=== PATIENT | female | born 1940 | race Two or more races ===

== ENCOUNTER 2018-01-11 16:24 | Inpatient (IN) | payer MEDICARE, MEDICAID ==
--- NOTE | 2018-01-11 17:01 | ED Physician Chart ---
ED Chief Complaint/HPI - Patient Information Date Seen:: 01/11/18 Time Seen:: 16:40 Chief Complaint:: Dizziness History of Present Illness:: onset x 3 days of weakness, vertigo, and dizziness; no report of trauma, H/As, LOC, ALOC, AMS, S/T, neck pain, cough, C/P, SOB, Abd. Pain, A/N/V/D/C, fever, chills, or urinary s/s Allergies:: Allergies Allergy/AdvReac Type Severity Reaction Status Date / Time No Known Allergies Allergy Verified 01/11/18 16:39 Vitals:: Vital Signs - 8 hr 01/11/18 16:40 Temp 97.7 F HR 79 RR 16 BP 118/56 Historian:: Patient, EMS Review:: Nurse's Note Reviewed, Old Chart Reviewed, EMS run form Reviewed ED Review of Systems - Review of Systems General/Constitutional: No fever, No chills, No weight loss, Weakness, No diaphoresis, No edema, No loss of appetite Skin: No skin lesions, No rash, No bruising Head: No headache, No light-headedness Eyes: No loss of vision, No pain, No diplopia ENT: No earache, No nasal drainage, No sore throat, No tinnitus Neck: No neck pain, No swelling, No thyromegaly, No stiffness, No mass noted Cardio Vascular: No chest pain, No palpitations, No PND, No orthopnea, No edema Pulmonary: No SOB, No cough, No sputum, No wheezing GI: No nausea, No vomiting, No diarrhea, No pain, No melena, No hematochezia, No constipation, No hematemesis G/U: No dysuria, No frequency, No hematuria Hi Lo Driver: No vaginal discharge, No abnormal vaginal bleed, No contraction Musculoskeletal: No bone or joint pain, No back pain, No muscle pain Endocrine: No polyuria, No polydipsia Psychiatric: No prior psych history, No depression, No anxiety, No suicidal ideation, No homicidal ideation, No auditory hallucination, No visual hallucination Hematopoietic: No bruising, No lymphadenopathy Allergic/Immuno: No urticaria, No angioedema Neurological: No syncope, No focal symptoms, Weakness, No paresthesia, No headache, No seizure, Dizziness, Confusion, Vertigo ED Past Medical History - Past Medical History Obtainable: Yes Past Medical History: HTN, CVA/TIA, Dyslipidemia, PUD/GERD, Dementia Family History: HTN Social History: Non Smoker, No Alcohol, No Drug Use, , Care Facility Surgical History: None Psychiatricy History: Dementia Medication: Reviewed Family Medical History - Family Member Mother History Unknown: Yes ED Physical Exam - Physical Examination General/Constitutional: Awake, Well-developed, well-nourished, Alert, No distress, GCS 15, Non-toxic appearing, Ambulatory Head: Atraumatic Eyes: Lids, conjuctiva normal, PERRL, EOMI Skin: Nl inspection, No rash, No skin lesions, No ecchymosis, Well hydrated, No lymphadenopathy ENMT: External ears, nose nl, TM canals nl, Nasal exam nl, Lips, teeth, gums nl , Oropharynx nl, Tonsils nl Neck: Nontender, Full ROM w/o pain, No JVD, No nuchal rigidity, No bruit, No mass, No stridor Respiratory: Nl effort/Exclusion, Clear to Auscultation, No Wheeze/Rhonchi/Rales Cardio Vascular: RRR, No murmur, gallop, rubs, NL S1 S2, Carotid/Femoral/Distal pulses equal bilaterally GI: No tenderness/rebounding/guarding, No organomegaly, No hernia, Normal BS's, Nondistended, No mass/bruits, No McBurney tenderness : No CVA tenderness Extremities: No tenderness or effusion, Full ROM, normal strength in all extremities, No edema, Normal digits & nails Neuro/Psych: Alert/oriented, DTR's symmetric, Normal sensory exam, Normal motor strength, Judgement/insight normal, Mood normal, Normal gait, No focal deficits Misc: Normal back, No paraspinal tenderness ED Labs/Radiology/EKG Results - Lab Results Comments:: Reviewed - Radiology Results Comments:: NAD - EKG Interpretations EKG Time:: 17:06 Rate & Rhythm: 84; NSR Comments:: non-specific st-t changes ED Septic Shock - . Is Septic Shock (SBP<90, OR Lactate>4 mmol\L) present?: No - <6hrs of presentation: Vital Signs: Vital Signs - 8 hr 01/11/18 16:40 Temp 97.7 F HR 79 RR 16 BP 118/56 ED Reassessment (Disposition) - Reassessment Reassessment Condition:: Improved - Diagnosis Diagnosis:: Weakness; Dizziness; Vertigo; Hyponatremia; Dehydration; Hypercalcemia; Leukocytosis - Aftercare/Follow up Instructions Aftercare/Follow-Up Instructions:: Counseled pt regarding lab results/diagnosis & need follow up, Counseled pt & family regarding lab results/diagnosis & need follow up - Patient Disposition Discharge/Transfer:: Acute Care w/in this hosp Accepting Physician:: Dr. Lee Time Called:: 1800 Time Responded:: 18:00 Admitted to:: Telemetry Spoke to:: Dr. Lee Admitting Medical Physician:: Dr. Lee Condition at Disposition:: Stable, Improved
[2018-01-11 17:15] LABS: % BASOPHILS 0.5 % (0.0-2.0); % EOSINOPHILS 3.5 % (0.0-5.0); % MONOCYTES 7.2 % (2.0-10.0); % NEUTROPHILS 69.8 % (40.0-80.0); BASOPHILE ABSOLUTE 0.1 Th/cumm (0-0.2); EOSINOPHILE ABSOLUTE 0.4 Th/cmm (0.1-0.4); HEMATOCRIT 38.1 % (41.0-60); HEMOGLOBIN 12.8 gm/dL (12-16); LYMPHOCYTE ABSOLUTE 2.1 Th/cmm (1.5-3.0); MEAN CELL VOLUME 93.6 fl (81-100); MEAN CORPUSCULAR HEMOGLOBIN 31.4 pg (27.0-31.0); MEAN CORPUSCULAR HGB CONC 33.6 pg (28.0-36.0); MEAN PLATELET VOLUME 7.7 fl; MONOCYTE ABSOLUTE 0.8 Th/cmm (0.3-1.0); NEUTROPHILE ABSOLUTE 7.7 Th/cmm (1.8-8.0); PLATELET COUNT 339 Th/cmm (150-400); RED BLOOD COUNT 4.07 Mil/cmm (3.80-5.20); RED CELL DISTRIBUTION WIDTH 12.4 % (11.5-20.0); WHITE BLOOD COUNT 11.1 Th/cmm (4.8-10.8)
[2018-01-11 17:27] LABS: INR 0.95 (0.5-1.4); PROTHROMBIN TIME (TEST) 9.9 SECONDS (9.5-11.5)
[2018-01-11 17:30] LABS: ALB/GLOB RATIO 1.1 (1.0-1.8); ALBUMIN 3.8 gm/dL (3.7-5.3); ALKALINE PHOSPHATASE 64 U/L (34-104); ANION GAP 10.5 (7.0-16.0); BILIRUBIN,TOTAL 0.3 mg/dL (0.3-1.0); BUN - UREA NITROGEN 26 mg/dL (7-25); CALCIUM SERUM 10.4 mg/dL (8.6-10.3); CARBON DIOXIDE 25.5 mEq/L (21.0-31.0); CHLORIDE 102 mEq/L (98-107); CHOLESTEROL 139 mg/dL (<200); CREATININE - SERUM 0.6 mg/dL (0.6-1.2); CREATININE KINASE 11 U/L (30-223); GLUCOSE 117 mg/dL (70-105); HDL -HIGH DENSITY LIPOPROTEIN 35 mg/dL (23-92); SGOT 11 U/L (13-39); SGPT/ALT 12 U/L (7-52); SODIUM SERUM 134 mEq/L (136-145); TOTAL PROTEIN,SERUM 7.4 gm/dL (6.0-8.3); TRIGLYCERIDES 184 mg/dL (<150)
[2018-01-11 19:24] VITALS: BP 118/47
[2018-01-11] MEDS: INSULIN ASPART SLIDING SCALE 100 UNITS/ML UNIT SUBQ SCH (21:15)
[2018-01-12 06:18] LABS: % EOSINOPHILS 4.2 % (0.0-5.0); % MONOCYTES 7.8 % (2.0-10.0); BASOPHILE ABSOLUTE 0.1 Th/cumm (0-0.2); EOSINOPHILE ABSOLUTE 0.3 Th/cmm (0.1-0.4); HEMATOCRIT 35.7 % (41.0-60); HEMOGLOBIN 12.1 gm/dL (12-16); LYMPHOCYTE ABSOLUTE 1.5 Th/cmm (1.5-3.0); MEAN CELL VOLUME 93.5 fl (81-100); MEAN CORPUSCULAR HEMOGLOBIN 31.6 pg (27.0-31.0); MEAN CORPUSCULAR HGB CONC 33.8 pg (28.0-36.0); MEAN PLATELET VOLUME 8.1 fl; MONOCYTE ABSOLUTE 0.6 Th/cmm (0.3-1.0); NEUTROPHILE ABSOLUTE 5.7 Th/cmm (1.8-8.0); PLATELET COUNT 308 Th/cmm (150-400); RED BLOOD COUNT 3.82 Mil/cmm (3.80-5.20); RED CELL DISTRIBUTION WIDTH 12.3 % (11.5-20.0)
[2018-01-12 06:22] LABS: WHITE BLOOD COUNT 8.2 Th/cmm (4.8-10.8)
[2018-01-12 06:35] LABS: URINE SOURCE CLEAN C
[2018-01-12 06:35] LABS: ALBUMIN 3.3 gm/dL (3.7-5.3); ALKALINE PHOSPHATASE 53 U/L (34-104); ANION GAP 9.3 (7.0-16.0); BILIRUBIN,TOTAL 0.5 mg/dL (0.3-1.0); BUN - UREA NITROGEN 22 mg/dL (7-25); CALCIUM SERUM 9.8 mg/dL (8.6-10.3); CARBON DIOXIDE 26.7 mEq/L (21.0-31.0); CHLORIDE 104 mEq/L (98-107); CHOLESTEROL 124 mg/dL (<200); CREATININE - SERUM 0.6 mg/dL (0.6-1.2); GLUCOSE 138 mg/dL (70-105); HDL -HIGH DENSITY LIPOPROTEIN 31 mg/dL (23-92); SGOT 11 U/L (13-39); SGPT/ALT 11 U/L (7-52); SODIUM SERUM 136 mEq/L (136-145); TOTAL PROTEIN,SERUM 6.7 gm/dL (6.0-8.3); TRIGLYCERIDES 164 mg/dL (<150)
[2018-01-12] MEDS: INSULIN ASPART SLIDING SCALE 100 UNITS/ML UNIT SUBQ SCH ×4 (07:06→20:38)
[2018-01-12 07:07] LABS: URINE BILIRUBIN NEGATIVE (NEGATIVE); URINE BLOOD MODERATE (NEGATIVE); URINE CLARITY TURBID (CLEAR); URINE COLOR YELLOW; URINE GLUCOSE (UA) NEGATIVE (NEGATIVE); URINE KETONE NEGATIVE (NEGATIVE); URINE MICROSCOPIC INDICATED? YES
[2018-01-12 07:08] LABS: URINE LEUKOCYTE ESTERASE LARGE (NEGATIVE); URINE NITRATE NEGATIVE (NEGATIVE); URINE PROTEIN >300 mg/dL (NEGATIVE); URINE UROBILINOGEN 0.2 E.U./dL (0.2 - 1.0)
[2018-01-12 07:12] LABS: URINE AMORPHOUS SEDIMENT MANY PHOSPHATES (NONE SEEN); URINE BACTERIA FEW /hpf (NONE SEEN); URINE EPITHELIAL CELLS FEW /lpf (FEW); URINE WBC 50-100 /hpf (0-5)
--- NOTE | 2018-01-12 08:41 | Diagnostic Imaging Report ---
Head CT without intravenous contrast Indication: Dizziness Comparison: None Technique: Axial images were obtained from the vertex to the skull base without IV contrast. Coronal reconstructions were made. Total DLP: 563, [id number] FINDINGS: Images of the brain obtained without contrast demonstrate no evidence of an acute hemorrhage. Atrophy is noted. Low-attenuation changes of the medial right posterior cerebellum are noted. There may be a faint calcification in this region. The ventricles and basal cisterns are patent. No mass effect or midline shift. No evidence of a skull fracture or focal soft tissue swelling. The visualized paranasal sinuses demonstrate minimal mucosal thickening. IMPRESSION: No evidence of an acute intracranial hemorrhage. Low attenuation changes in the right posterior cerebellar hemisphere probably related to an old infarct. Edema and occult mass is considered much less likely. Please correlate with clinical history and old exams. If indicated, a follow-up MRI may provide additional detail and assessment.
[2018-01-12] MEDS ORDERED: Magnesium Hydroxide (MOM) 30 mL UDC PO PRN ×2 (11:08→13:43)
[2018-01-12] MEDS: cefTRIAXone 1 GM in Sodium Chloride 0.9% 50 ML IV SCH (12:59)
[2018-01-12] MEDS ORDERED: Fleet Enema 135 mL RC PRN (13:43)
[2018-01-12] MEDS ORDERED: GLUCAGON HCl 1 MG KIT IM PRN (13:43)
--- NOTE | 2018-01-12 14:35 | Consultation ---
Consult Note - Consult Note Service Date: 01/12/18 Referring Physician: Hawk Lee Consult Note: PHYSICIAN Consultation Note: Date of Admission: 01/11/18 Purpose of Consultation: UTI Chief Complaint: Patient SHARAD BARTON was admitted to [facility] Telemetry with HYPONATREMIA, VERTIGO, DEHYDRATION, HYPERCALCEMIA. History of Present Illness: 77 year old female with history of HTN, CVA/TIA, Dyslipidemia, PUD/GERD, Dementia came in for vertigo, and swelling of right sided face. On nitial evaluation, she was afebrile with WBC count 11K. UA showed pyuria and bacteriuria. Rocephin was started and ID consult was called for antibiotic management. Past Medical History: HTN, CVA/TIA, Dyslipidemia, PUD/GERD, Dementia Allergies Allergy/AdvReac Type Severity Reaction Status Date / Time No Known Allergies Allergy Verified 01/11/18 16:39 Vital Signs Temp 96.9 F 01/12/18 11:38 Pulse 74 01/12/18 11:38 Resp 18 01/12/18 11:38 BP 128/62 01/12/18 11:38 Pulse Ox 97 01/12/18 11:38 Intake & Output 01/11/18 01/12/18 01/12/18 18:59 06:59 18:59 Intake Total 100 Balance 100 Weight (lbs) 74.843 kg 72.575 kg Intake: Oral 100 Other: # Voids 2 # Bowel Movements 0 Weight Source Patient stated Bedscale Laboratory Results - last 24 hr 01/11/18 01/11/18 01/11/18 17:05 17:05 17:05 WBC 11.1 H RBC 4.07 Hgb 12.8 Hct 38.1 L MCV 93.6 MCH 31.4 H MCHC Differential 33.6 RDW 12.4 Plt Count 339 MPV 7.7 Neutrophils % 69.8 Lymphocytes % 19.0 L Monocytes % 7.2 Eosinophils % 3.5 Basophils % 0.5 PT 9.9 INR 0.95 Sodium 134 L Potassium 4.0 Chloride 102 Carbon Dioxide 25.5 Anion Gap 10.5 BUN 26 H Creatinine 0.6 Est GFR ( Amer) TNP Est GFR (Non-Af Amer) TNP BUN/Creatinine Ratio 43.3 Glucose 117 H POC Glucose Calcium 10.4 H Total Bilirubin 0.3 AST 11 L ALT 12 Alkaline Phosphatase 64 Creatine Kinase 11 L Troponin I B-Natriuretic Peptide Total Protein 7.4 Albumin 3.8 Globulin 3.6 Albumin/Globulin Ratio 1.1 Triglycerides 184 H Cholesterol 139 LDL Cholesterol Direct 77 HDL Cholesterol 35 TSH Urine Source Urine Color Urine Clarity Urine pH Ur Specific [place] Urine Protein Urine Glucose (UA) Urine Ketones Urine Blood Urine Nitrate Urine Bilirubin Urine Urobilinogen Ur Leukocyte Esterase Urine RBC Urine WBC Ur Epithelial Cells Amorphous Sediment Urine Bacteria 01/11/18 01/11/18 01/11/18 17:05 17:05 21:08 WBC RBC Hgb Hct MCV MCH MCHC Differential RDW Plt Count MPV Neutrophils % Lymphocytes % Monocytes % Eosinophils % Basophils % PT INR Sodium Potassium Chloride Carbon Dioxide Anion Gap BUN Creatinine Est GFR ( Amer) Est GFR (Non-Af Amer) BUN/Creatinine Ratio Glucose POC Glucose 126 H Calcium Total Bilirubin AST ALT Alkaline Phosphatase Creatine Kinase Troponin I 0.02 B-Natriuretic Peptide 11.1 Total Protein Albumin Globulin Albumin/Globulin Ratio Triglycerides Cholesterol LDL Cholesterol Direct HDL Cholesterol TSH Urine Source Urine Color Urine Clarity Urine pH Ur Specific [place] Urine Protein Urine Glucose (UA) Urine Ketones Urine Blood Urine Nitrate Urine Bilirubin Urine Urobilinogen Ur Leukocyte Esterase Urine RBC Urine WBC Ur Epithelial Cells Amorphous Sediment Urine Bacteria 01/12/18 01/12/18 01/12/18 05:54 06:00 06:00 WBC 8.2 D RBC 3.82 Hgb 12.1 Hct 35.7 L MCV 93.5 MCH 31.6 H MCHC Differential 33.8 RDW 12.3 Plt Count 308 MPV 8.1 Neutrophils % 69.0 Lymphocytes % 18.0 L Monocytes % 7.8 Eosinophils % 4.2 Basophils % 1.0 PT INR Sodium 136 Potassium 4.0 Chloride 104 Carbon Dioxide 26.7 Anion Gap 9.3 BUN 22 Creatinine 0.6 Est GFR ( Amer) TNP Est GFR (Non-Af Amer) TNP BUN/Creatinine Ratio 36.7 Glucose 138 H POC Glucose 148 H Calcium 9.8 Total Bilirubin 0.5 AST 11 L ALT 11 Alkaline Phosphatase 53 Creatine Kinase Troponin I B-Natriuretic Peptide Total Protein 6.7 Albumin 3.3 L Globulin 3.4 Albumin/Globulin Ratio 1.0 Triglycerides 164 H Cholesterol 124 LDL Cholesterol Direct 71 L HDL Cholesterol 31 TSH Urine Source Urine Color Urine Clarity Urine pH Ur Specific [place] Urine Protein Urine Glucose (UA) Urine Ketones Urine Blood Urine Nitrate Urine Bilirubin Urine Urobilinogen Ur Leukocyte Esterase Urine RBC Urine WBC Ur Epithelial Cells Amorphous Sediment Urine Bacteria 01/12/18 01/12/18 01/12/18 06:00 06:20 12:01 WBC RBC Hgb Hct MCV MCH MCHC Differential RDW Plt Count MPV Neutrophils % Lymphocytes % Monocytes % Eosinophils % Basophils % PT INR Sodium Potassium Chloride Carbon Dioxide Anion Gap BUN Creatinine Est GFR ( Amer) Est GFR (Non-Af Amer) BUN/Creatinine Ratio Glucose POC Glucose 160 H Calcium Total Bilirubin AST ALT Alkaline Phosphatase Creatine Kinase Troponin I B-Natriuretic Peptide Total Protein Albumin Globulin Albumin/Globulin Ratio Triglycerides Cholesterol LDL Cholesterol Direct HDL Cholesterol TSH 2.10 Urine Source CLEAN C Urine Color YELLOW Urine Clarity TURBID H Urine pH 8.0 Ur Specific [place] 1.010 Urine Protein >300 H Urine Glucose (UA) NEGATIVE Urine Ketones NEGATIVE Urine Blood MODERATE H Urine Nitrate NEGATIVE Urine Bilirubin NEGATIVE Urine Urobilinogen 0.2 Ur Leukocyte Esterase LARGE H Urine RBC 5-10 H Urine WBC 50-100 H Ur Epithelial Cells FEW Amorphous Sediment MANY PHOSPHATES Urine Bacteria FEW Home Medication Medication Instructions Recorded Type Acetaminophen [Pain Reliever] 650 mg PO Q4H PRN 01/11/18 History Aspirin [Adult Aspirin Regimen] 81 mg PO DAILY 01/11/18 History Atorvastatin Calcium [Lipitor] 10 mg PO HS 01/11/18 History Bisacodyl [Dulcolax 10 Mg Supp] 10 mg RC DAILY PRN 01/11/18 History Dextrose [Glucose Gel] 15 gm PO STAT PRN PRN 01/11/18 History Docusate Sodium 100 mg PO BID 01/11/18 History Fleet Enema 135 ml RC DAILY PRN 01/11/18 History Glucagon,Human Recombinant 1 mg IJ STAT PRN PRN 01/11/18 History [Glucagon Emergency Kit] Insulin Human Regular [NovoLIN R] 0 units SUBQ ACHS 01/11/18 History Losartan Potassium [Cozaar] 50 mg PO DAILY 01/11/18 History Magnesium Hydroxide [Milk of 30 ml PO DAILY PRN 01/11/18 History Magnesia] Meclizine [Antivert*] 25 mg PO BID 01/11/18 History Ondansetron [Zofran ODT] 4 mg PO Q4HR PRN 01/11/18 History Tramadol HCl [Ultram] 50 mg PO TID PRN 01/11/18 History chlorproMAZINE [Thorazine] 25 mg PO Q8HR PRN 01/11/18 History cloNIDine HCl [Catapres] 0.1 mg PO Q8H PRN 01/11/18 History Current Medications Generic Name Dose Route Start Last Admin Trade Name Freq PRN Reason Stop Dose Admin Acetaminophen 650 mg 01/12/18 11:05 Tylenol PO 03/13/18 11:04 Q4H PRN Pain (Mild) Aspirin 81 mg 01/13/18 09:00 Aspirin Chewable PO 03/14/18 08:59 DAILY KOJO Aspirin 81 mg 01/13/18 09:00 Ecotrin PO 03/14/18 08:59 DAILY KOJO Atorvastatin Calcium 10 mg 01/12/18 21:00 Lipitor PO 03/13/18 20:59 HS KOJO Protocol Atorvastatin Calcium 10 mg 01/12/18 21:00 Lipitor PO 03/13/18 20:59 HS KOJO Protocol Bisacodyl 10 mg 01/12/18 13:43 Dulcolax 10 Mg Supp RC 03/13/18 13:42 DAILY PRN Constipation Chlorpromazine 25 mg 01/12/18 13:43 Thorazine PO 03/13/18 13:42 Q8HR PRN Hiccups Protocol Dextrose 15 gm 01/12/18 13:43 Glutose 40% PO 03/13/18 13:42 STAT PRN PRN BS<70 Docusate Sodium 100 mg 01/12/18 17:00 Colace PO 03/13/18 16:59 BID KOJO Ceftriaxone Sodium 1 gm/ 50 mls @ 100 mls/hr 01/12/18 12:00 01/12/18 12:59 Sodium Chloride IV 03/13/18 11:59 100 mls/hr Q24HR KOJO Administration Insulin Aspart 0 units 01/11/18 21:00 01/12/18 12:45 Novolog Insulin Sliding Scale SUBQ 03/12/18 20:59 2 units ACHS KOJO Administration Protocol Insulin Human Regular 0 units 01/12/18 16:30 Novolin R SUBQ 03/13/18 16:29 ACHS KOJO Protocol Losartan Potassium 50 mg 01/13/18 09:00 Cozaar PO 03/14/18 08:59 DAILY KOJO Losartan Potassium 50 mg 01/13/18 09:00 Cozaar PO 03/14/18 08:59 DAILY KOJO Magnesium Hydroxide 30 ml 01/12/18 11:08 Milk Of Magnesia PO 03/13/18 11:07 HS PRN Constipation Magnesium Hydroxide 30 ml 01/12/18 13:43 Milk Of Magnesia PO 03/13/18 13:42 DAILY PRN Constipation Meclizine HCl 25 mg 01/12/18 17:00 Antivert PO 03/13/18 16:59 BID KOJO Meclizine HCl 25 mg 01/12/18 17:00 Antivert PO 03/13/18 16:59 BID KOJO Miscellaneous 650 mg 01/12/18 13:43 Acetaminophen [Pain Reliever] PO Q4H PRN pain/.4 Miscellaneous 100 mg 01/12/18 17:00 Docusate Sodium [Docusate Sodium] PO 03/13/18 16:59 BID KOJO Miscellaneous 1 mg 01/12/18 13:43 Glucagon,Human Recombinant [Glucagon Emergency Kit] IJ STAT PRN PRN BS<70 Ondansetron HCl 4 mg 01/12/18 11:11 Zofran Odt PO 03/13/18 11:10 Q4H PRN Nausea / Vomiting Ondansetron HCl 4 mg 01/12/18 13:43 Zofran Odt PO 03/13/18 13:42 Q4HR PRN Nausea / Vomiting Sodium Phosphate 135 ml 01/12/18 13:43 Fleet Enema RC 03/13/18 13:42 DAILY PRN Constipation Tramadol HCl 50 mg 01/12/18 11:09 Ultram PO 03/13/18 11:08 TID PRN Pain (Moderate) Tramadol HCl 50 mg 01/12/18 13:43 Ultram PO 03/13/18 13:42 TID PRN Pain (Mild) Review of Systems: A 12 point ROS was reviewed with the pertinent positive and negatives noted in the HPI. Social History Smoking Status Never smoker Family Medical History Family Medical History Start: 01/11/18 18: 42 Freq: ONCE Status: Active Protocol: Document 01/11/18 20:00 RICK (Rec: 01/11/18 22:46 RICK [id number]) Family Medical History Mother History Unknown Yes Ethnicity Living Status Physical Exam: General: Comfortable, not in any acute distress. HEENT: HEAD: NC NT,. Oral Cavity: moist pink tongue. EYES: Pallor is present, no icterus. there is no facial swelling or erythema. Neck: Supple, no JVD, no carotid bruit, Cardio: S1 and S2 WNL/ Respiratory: CTAP. Abdominal: Soft NT ND BS. There is no CVA tenderness. Genital/Urinary: deferred Extremities: NCCE. Neurological: AAOx3. Assessment: 1. UTI. 2. Vertigo. 3. HTN. 4. CVA/TIA. 5. Dyslipidemia. 6. PUD/GERD. 7. Dementia Plan: Continue Rocephin. Thank you, Dr Lee for involving me in taking care of this patient. Signed, Pancho Luna M.D. [id number]
[2018-01-12] MEDS ORDERED: INSULIN HUMAN REGULAR 100 UNITS/ML UNIT SUBQ SCH (16:30)
[2018-01-12] MEDS: Atorvastatin Calcium 10 MG TAB PO SCH (20:40)
[2018-01-12] MEDS ORDERED: Atorvastatin Calcium 10 MG TAB PO SCH (21:00)
--- NOTE | 2018-01-12 22:50 | History & Physical ---
ADMIT DATE: 01/11/2018 HISTORY OF PRESENT ILLNESS: The patient was admitted because of 3-day history of weakness, vertigo, dizziness, and also history of near falls. The patient was seen in the Emergency Room, was admitted for syncopal episodes and rule out cardiac or neurological problems. The patient was complaining of no fever, no chills, no diplopia. She was complaining for vertigo and complaining of dizziness. No focal symptoms. PAST MEDICAL HISTORY: The patient known to have history of hypertension, history of TIA and CVA in the past, history of peptic ulcer disease, and history of dementia. PHYSICAL EXAMINATION: GENERAL: Awake, alert, elderly female, seems to be complaining of severe weakness and dizziness. HEAD: Normal. ENT: Normal. NECK: Supple, nontender. LUNGS: Clear. CARDIOVASCULAR SYSTEM: S1, S2 heard. ABDOMEN: Soft. Bowel sounds are heard. CENTRAL NERVOUS SYSTEM: Slightly confused. LABORATORY DATA: EKG showed normal sinus rhythm, no EKG changes. The patient's CAT scan was negative. DIAGNOSES: Severe vertigo, severe dizziness, weakness, rule out transient ischemic attack, rule out cerebrovascular accident, history of hyponatremia, dehydration, hypercalcemia, leukocytosis, history of hypertension, history of cerebrovascular accident in the past, history of transient ischemic attack, history of hyperlipidemia, peptic ulcer disease, history of gastroesophageal reflux disease, and history of dementia. PLAN: The patient is being admitted. I will have neurological workup and call Dr. Chaudhry. The patient also found to have UTI. We will call Dr. Luna as well to treat her infection. I will follow the patient. JOB# [id number]
[2018-01-13] MEDS: INSULIN ASPART SLIDING SCALE 100 UNITS/ML UNIT SUBQ SCH ×4 (07:02→21:21)
[2018-01-13] MEDS ORDERED: Aspirin 81mg Chewable Tab PO SCH (09:00)
--- NOTE | 2018-01-13 09:41 | Infectious Disease Prog Note ---
Infectious Disease Subjective - Review of Systems Service Date: 01/13/18 Subjective: No new change, no fever. Infectious Disease Objective - Results Result Diagrams: 01/12/18 06:00 01/12/18 06:00 Recent Labs: Laboratory Last Values WBC 8.2 Th/cmm (4.8-10.8) D 01/12/18 06:00 RBC 3.82 Mil/cmm (3.80-5.20) 01/12/18 06:00 Hgb 12.1 gm/dL (12-16) 01/12/18 06:00 Hct 35.7 % (41.0-60) L 01/12/18 06:00 MCV 93.5 fl (81-100) 01/12/18 06:00 MCH 31.6 pg (27.0-31.0) H 01/12/18 06:00 MCHC Differential 33.8 pg (28.0-36.0) 01/12/18 06:00 RDW 12.3 % (11.5-20.0) 01/12/18 06:00 Plt Count 308 Th/cmm (150-400) 01/12/18 06:00 MPV 8.1 fl 01/12/18 06:00 Neutrophils % 69.0 % (40.0-80.0) 01/12/18 06:00 Lymphocytes % 18.0 % (20.0-50.0) L 01/12/18 06:00 Monocytes % 7.8 % (2.0-10.0) 01/12/18 06:00 Eosinophils % 4.2 % (0.0-5.0) 01/12/18 06:00 Basophils % 1.0 % (0.0-2.0) 01/12/18 06:00 PT 9.9 SECONDS (9.5-11.5) 01/11/18 17:05 INR 0.95 (0.5-1.4) 01/11/18 17:05 Sodium 136 mEq/L (136-145) 01/12/18 06:00 Potassium 4.0 mEq/L (3.5-5.1) 01/12/18 06:00 Chloride 104 mEq/L (98-107) 01/12/18 06:00 Carbon Dioxide 26.7 mEq/L (21.0-31.0) 01/12/18 06:00 Anion Gap 9.3 (7.0-16.0) 01/12/18 06:00 BUN 22 mg/dL (7-25) 01/12/18 06:00 Creatinine 0.6 mg/dL (0.6-1.2) 01/12/18 06:00 Est GFR ( Amer) TNP 01/12/18 06:00 Est GFR (Non-Af Amer) TNP 01/12/18 06:00 BUN/Creatinine Ratio 36.7 01/12/18 06:00 Glucose 138 mg/dL (70-105) H 01/12/18 06:00 POC Glucose 156 MG/DL (70 - 105) H 01/12/18 20:34 Calcium 9.8 mg/dL (8.6-10.3) 01/12/18 06:00 Total Bilirubin 0.5 mg/dL (0.3-1.0) 01/12/18 06:00 AST 11 U/L (13-39) L 01/12/18 06:00 ALT 11 U/L (7-52) 01/12/18 06:00 Alkaline Phosphatase 53 U/L (34-104) 01/12/18 06:00 Creatine Kinase 11 U/L (30-223) L 01/11/18 17:05 Troponin I 0.02 ng/mL (0.01-0.05) 01/11/18 17:05 B-Natriuretic Peptide 11.1 pg/mL (5.0-100.0) 01/11/18 17:05 Total Protein 6.7 gm/dL (6.0-8.3) 01/12/18 06:00 Albumin 3.3 gm/dL (3.7-5.3) L 01/12/18 06:00 Globulin 3.4 gm/dL 01/12/18 06:00 Albumin/Globulin Ratio 1.0 (1.0-1.8) 01/12/18 06:00 Triglycerides 164 mg/dL (<150) H 01/12/18 06:00 Cholesterol 124 mg/dL (<200) 01/12/18 06:00 LDL Cholesterol Direct 71 mg/dL (75-193) L 01/12/18 06:00 HDL Cholesterol 31 mg/dL (23-92) 01/12/18 06:00 TSH 2.10 uIU/ml (0.34-5.60) 01/12/18 06:00 Urine Source CLEAN C 01/12/18 06:20 Urine Color YELLOW 01/12/18 06:20 Urine Clarity TURBID (CLEAR) H 01/12/18 06:20 Urine pH 8.0 (4.6 - 8.0) 01/12/18 06:20 Ur Specific [place] 1.010 (1.005-1.030) 01/12/18 06:20 Urine Protein >300 mg/dL (NEGATIVE) H 01/12/18 06:20 Urine Glucose (UA) NEGATIVE mg/dL (NEGATIVE) 01/12/18 06:20 Urine Ketones NEGATIVE mg/dL (NEGATIVE) 01/12/18 06:20 Urine Blood MODERATE (NEGATIVE) H 01/12/18 06:20 Urine Nitrate NEGATIVE (NEGATIVE) 01/12/18 06:20 Urine Bilirubin NEGATIVE (NEGATIVE) 01/12/18 06:20 Urine Urobilinogen 0.2 E.U./dL (0.2 - 1.0) 01/12/18 06:20 Ur Leukocyte Esterase LARGE (NEGATIVE) H 01/12/18 06:20 Urine RBC 5-10 /hpf (0-5) H 01/12/18 06:20 Urine WBC 50-100 /hpf (0-5) H 01/12/18 06:20 Ur Epithelial Cells FEW /lpf (FEW) 01/12/18 06:20 Amorphous Sediment MANY PHOSPHATES (NONE SEEN) 01/12/18 06:20 Urine Bacteria FEW /hpf (NONE SEEN) 01/12/18 06:20 - Physical Exam Vitals and I&O: Vital Signs Temp 97.2 F 01/13/18 07:56 Pulse 53 01/13/18 07:56 Resp 17 01/13/18 07:56 BP 104/54 01/13/18 07:56 Pulse Ox 100 01/13/18 07:56 Intake & Output 01/12/18 01/13/18 01/13/18 18:59 06:59 18:59 Intake Total 50 120 Balance 50 120 Weight (lbs) 73.482 kg 73.085 kg Intake: Intake, IV Amount 50 [id number] 1 gm In 50 Sodium Chloride 0.9% 50 ml @ 100 mls/hr IV Q24HR [facility] Rx#:[id number] Oral 120 Other: # Voids 2 2 # Bowel Movements 0 Weight Source Bedscale Bedscale Active Medications: Current Medications Acetaminophen (Tylenol) 650 mg PO Q4H PRN PRN Reason: pain/.4 Aspirin (Ecotrin) 81 mg PO DAILY [facility] Stop: 03/14/18 08:59 Atorvastatin Calcium (Lipitor) 10 mg PO HS [facility]; Protocol Stop: 03/13/18 20:59 Last Admin: 01/12/18 20:40 Dose: 10 mg Bisacodyl (Dulcolax 10 Mg Supp) 10 mg RC DAILY PRN PRN Reason: IF MOM INEFFECTIVE Stop: 03/13/18 13:42 Chlorpromazine (Thorazine) 25 mg PO Q8HR PRN; Protocol PRN Reason: Hiccups Stop: 03/13/18 13:42 Dextrose (Glutose 40%) 15 gm PO PRN PRN PRN Reason: BS BELOW 70 Stop: 03/13/18 13:42 Docusate Sodium (Colace) 100 mg PO BID [facility] Stop: 03/13/18 16:59 Last Admin: 01/12/18 16:27 Dose: 100 mg Glucagon (Glucagen) 1 mg IM STAT PRN PRN PRN Reason: BS BELOW 70 Stop: 03/14/18 13:42 Ceftriaxone Sodium 1 gm/ (Sodium Chloride) 50 mls @ 100 mls/hr IV Q24HR [facility] Stop: 03/13/18 11:59 Last Infusion: 01/12/18 18:19 Dose: Infused Insulin Aspart (Novolog Insulin Sliding Scale) 0 units SUBQ ACHS [facility]; Protocol Stop: 03/12/18 20:59 Last Admin: 01/13/18 07:02 Dose: Not Given Losartan Potassium (Cozaar) 50 mg PO DAILY [facility] Stop: 03/14/18 08:59 Magnesium Hydroxide (Milk Of Magnesia) 30 ml PO HS PRN PRN Reason: Constipation Stop: 03/13/18 11:07 Meclizine HCl (Antivert) 25 mg PO BID [facility] Stop: 03/13/18 16:59 Last Admin: 01/12/18 16:27 Dose: 25 mg Ondansetron HCl (Zofran Odt) 4 mg PO Q4H PRN PRN Reason: Nausea / Vomiting Stop: 03/13/18 11:10 Sodium Phosphate (Fleet Enema) 135 ml RC DAILY PRN PRN Reason: Constipation Stop: 03/13/18 13:42 Tramadol HCl (Ultram) 50 mg PO TID PRN PRN Reason: Pain (Moderate) Stop: 03/13/18 11:08 General: no acute distress, well developed, well nourished HEENT: atraumatic, normocephalic, PERRLA, EOMI Neck: supple, no thyromegaly Cardiovascular: S1S2, regular Lungs: clear to auscultation bilaterally, clear to percussion Abdomen: soft, no tender, no distended Extremities: no cyanosis, no clubbing, no edema Neurological: awake, alert, oriented Skin: intact Infectious Disease Assmt/Plan - Assessment Assessment: 1. UTI. 2. Vertigo. 3. HTN. 4. CVA/TIA. 5. Dyslipidemia. 6. PUD/GERD. 7. Dementia - Plan Plan: CPM.
[2018-01-13] MEDS: cefTRIAXone 1 GM in Sodium Chloride 0.9% 50 ML IV SCH (12:34)
--- NOTE | 2018-01-13 16:13 | General Progress Note ---
Subjective - Review of Systems Subjective: pt. feels weak and feels dizzy Objective - Results Result Diagrams: 01/12/18 06:00 01/12/18 06:00 Recent Labs: Laboratory Last Values WBC 8.2 Th/cmm (4.8-10.8) D 01/12/18 06:00 RBC 3.82 Mil/cmm (3.80-5.20) 01/12/18 06:00 Hgb 12.1 gm/dL (12-16) 01/12/18 06:00 Hct 35.7 % (41.0-60) L 01/12/18 06:00 MCV 93.5 fl (81-100) 01/12/18 06:00 MCH 31.6 pg (27.0-31.0) H 01/12/18 06:00 MCHC Differential 33.8 pg (28.0-36.0) 01/12/18 06:00 RDW 12.3 % (11.5-20.0) 01/12/18 06:00 Plt Count 308 Th/cmm (150-400) 01/12/18 06:00 MPV 8.1 fl 01/12/18 06:00 Neutrophils % 69.0 % (40.0-80.0) 01/12/18 06:00 Lymphocytes % 18.0 % (20.0-50.0) L 01/12/18 06:00 Monocytes % 7.8 % (2.0-10.0) 01/12/18 06:00 Eosinophils % 4.2 % (0.0-5.0) 01/12/18 06:00 Basophils % 1.0 % (0.0-2.0) 01/12/18 06:00 PT 9.9 SECONDS (9.5-11.5) 01/11/18 17:05 INR 0.95 (0.5-1.4) 01/11/18 17:05 Sodium 136 mEq/L (136-145) 01/12/18 06:00 Potassium 4.0 mEq/L (3.5-5.1) 01/12/18 06:00 Chloride 104 mEq/L (98-107) 01/12/18 06:00 Carbon Dioxide 26.7 mEq/L (21.0-31.0) 08/08/18 06:00 Anion Gap 9.3 (7.0-16.0) 01/12/18 06:00 BUN 22 mg/dL (7-25) 01/12/18 06:00 Creatinine 0.6 mg/dL (0.6-1.2) 01/12/18 06:00 Est GFR ( Amer) TNP 01/12/18 06:00 Est GFR (Non-Af Amer) TNP 01/12/18 06:00 BUN/Creatinine Ratio 36.7 01/12/18 06:00 Glucose 138 mg/dL (70-105) H 01/12/18 06:00 POC Glucose 139 MG/DL (70 - 105) H 01/13/18 12:20 Calcium 9.8 mg/dL (8.6-10.3) 01/12/18 06:00 Total Bilirubin 0.5 mg/dL (0.3-1.0) 01/12/18 06:00 AST 11 U/L (13-39) L 01/12/18 06:00 ALT 11 U/L (7-52) 01/12/18 06:00 Alkaline Phosphatase 53 U/L (34-104) 01/12/18 06:00 Creatine Kinase 11 U/L (30-223) L 01/11/18 17:05 Troponin I 0.02 ng/mL (0.01-0.05) 01/11/18 17:05 B-Natriuretic Peptide 11.1 pg/mL (5.0-100.0) 01/11/18 17:05 Total Protein 6.7 gm/dL (6.0-8.3) 01/12/18 06:00 Albumin 3.3 gm/dL (3.7-5.3) L 01/12/18 06:00 Globulin 3.4 gm/dL 01/12/18 06:00 Albumin/Globulin Ratio 1.0 (1.0-1.8) 01/12/18 06:00 Triglycerides 164 mg/dL (<150) H 01/12/18 06:00 Cholesterol 124 mg/dL (<200) 01/12/18 06:00 LDL Cholesterol Direct 71 mg/dL (75-193) L 01/12/18 06:00 HDL Cholesterol 31 mg/dL (23-92) 01/12/18 06:00 CA 19-9 Antigen 4 U/mL (0-35) 01/12/18 06:00 TSH 2.10 uIU/ml (0.34-5.60) 01/12/18 06:00 Urine Source CLEAN C 01/12/18 06:20 Urine Color YELLOW 01/12/18 06:20 Urine Clarity TURBID (CLEAR) H 01/12/18 06:20 Urine pH 8.0 (4.6 - 8.0) 01/12/18 06:20 Ur Specific [place] 1.010 (1.005-1.030) 01/12/18 06:20 Urine Protein >300 mg/dL (NEGATIVE) H 01/12/18 06:20 Urine Glucose (UA) NEGATIVE mg/dL (NEGATIVE) 01/12/18 06:20 Urine Ketones NEGATIVE mg/dL (NEGATIVE) 01/12/18 06:20 Urine Blood MODERATE (NEGATIVE) H 01/12/18 06:20 Urine Nitrate NEGATIVE (NEGATIVE) 01/12/18 06:20 Urine Bilirubin NEGATIVE (NEGATIVE) 01/12/18 06:20 Urine Urobilinogen 0.2 E.U./dL (0.2 - 1.0) 01/12/18 06:20 Ur Leukocyte Esterase LARGE (NEGATIVE) H 01/12/18 06:20 Urine RBC 5-10 /hpf (0-5) H 01/12/18 06:20 Urine WBC 50-100 /hpf (0-5) H 01/12/18 06:20 Ur Epithelial Cells FEW /lpf (FEW) 01/12/18 06:20 Amorphous Sediment MANY PHOSPHATES (NONE SEEN) 01/12/18 06:20 Urine Bacteria FEW /hpf (NONE SEEN) 01/12/18 06:20 - Physical Exam Vitals and I&O: Vital Signs Temp 97.4 F 01/13/18 11:38 Pulse 75 01/13/18 11:38 Resp 18 01/13/18 16:00 BP 105/48 01/13/18 11:38 Pulse Ox 95 01/13/18 11:38 Intake & Output 01/12/18 01/13/18 01/13/18 18:59 06:59 18:59 Intake Total 50 170 Balance 50 170 Weight (lbs) 73.482 kg 73.085 kg Intake: Intake, IV Amount 50 50 [id number] 1 gm In 50 50 Sodium Chloride 0.9% 50 ml @ 100 mls/hr IV Q24HR [facility] Rx#:[id number] Oral 120 Other: # Voids 2 2 # Bowel Movements 0 Weight Source Bedscale Bedscale Active Medications: Current Medications Acetaminophen (Tylenol) 650 mg PO Q4H PRN PRN Reason: pain/.4 Aspirin (Ecotrin) 81 mg PO DAILY [facility] Stop: 03/14/18 08:59 Last Admin: 01/13/18 09:36 Dose: 81 mg Atorvastatin Calcium (Lipitor) 10 mg PO HS [facility]; Protocol Stop: 03/13/18 20:59 Last Admin: 01/12/18 20:40 Dose: 10 mg Bisacodyl (Dulcolax 10 Mg Supp) 10 mg RC DAILY PRN PRN Reason: IF MOM INEFFECTIVE Stop: 03/13/18 13:42 Chlorpromazine (Thorazine) 25 mg PO Q8HR PRN; Protocol PRN Reason: Hiccups Stop: 03/13/18 13:42 Dextrose (Glutose 40%) 15 gm PO PRN PRN PRN Reason: BS BELOW 70 Stop: 03/13/18 13:42 Docusate Sodium (Colace) 100 mg PO BID [facility] Stop: 03/13/18 16:59 Last Admin: 01/13/18 09:36 Dose: 100 mg Glucagon (Glucagen) 1 mg IM STAT PRN PRN PRN Reason: BS BELOW 70 Stop: 03/14/18 13:42 Ceftriaxone Sodium 1 gm/ (Sodium Chloride) 50 mls @ 100 mls/hr IV Q24HR [facility] Stop: 03/13/18 11:59 Last Infusion: 01/13/18 15:59 Dose: Infused Insulin Aspart (Novolog Insulin Sliding Scale) 0 units SUBQ ACHS [facility]; Protocol Stop: 03/12/18 20:59 Last Admin: 01/13/18 12:21 Dose: Not Given Losartan Potassium (Cozaar) 50 mg PO DAILY [facility] Stop: 03/14/18 08:59 Last Admin: 01/13/18 09:38 Dose: Not Given Magnesium Hydroxide (Milk Of Magnesia) 30 ml PO HS PRN PRN Reason: Constipation Stop: 03/13/18 11:07 Meclizine HCl (Antivert) 25 mg PO BID [facility] Stop: 03/13/18 16:59 Last Admin: 01/13/18 09:41 Dose: 25 mg Ondansetron HCl (Zofran Odt) 4 mg PO Q4H PRN PRN Reason: Nausea / Vomiting Stop: 03/13/18 11:10 Sodium Phosphate (Fleet Enema) 135 ml RC DAILY PRN PRN Reason: Constipation Stop: 03/13/18 13:42 Tramadol HCl (Ultram) 50 mg PO TID PRN PRN Reason: Pain (Moderate) Stop: 03/13/18 11:08 General: Alert, Oriented x3, No acute distress HEENT: Atraumatic, PERRLA, EOMI Neck: Supple Cardiovascular: Regular rate Lungs: Clear to auscultation Abdomen: Bowel sounds Assessment/Plan - Assessment Assessment: Vertigo UTI HTN CVA/TIA Dyslipidemia PUD/GERD Dementia - Plan Plan: cpm will monitor pt.
[2018-01-13] MEDS: Atorvastatin Calcium 10 MG TAB PO SCH (21:22)
[2018-01-14] MEDS: INSULIN ASPART SLIDING SCALE 100 UNITS/ML UNIT SUBQ SCH ×3 (08:19→16:54)
[2018-01-14] MEDS: cefTRIAXone 1 GM in Sodium Chloride 0.9% 50 ML IV SCH (11:56)
--- NOTE | 2018-02-01 22:41 | Discharge Summary ---
DATE OF DISCHARGE: 01/14/2018 The patient admitted on 01/11/2018 to [facility]. The patient was discharged to [facility] on 01/14/2018. The patient was admitted because the patient was feeling dizzy with a history of falls. The patient still has hyponatremia, rule out CVA, history of CVA, history of GERD ____ the patient had a GI consult and neuro consult. The patient was in stable condition on 01/14/2018 in [facility] and [facility] accepted the patient and she was sent over there. I will be following the patient in the next 2 days. s CONDITION AT TIME OF DISCHARGE: Stable. MEDICATIONS: See the reconciliation sheet. [facility]# [id number]
== END 2018-01-14 18:10 | DRG 65 ==
LOC: ER 16:24 → TELE 18:35
PROVIDERS: ADMIT Internal Medicine; ATTEND Internal Medicine
DX: I63.9 Cerebral infarction, unspecified (principal); E87.1 Hypo-osmolality and hyponatremia; N39.0 Urinary tract infection, site not specified; I10 Essential (primary) hypertension; E78.5 Hyperlipidemia, unspecified; K27.9 Peptic ulcer, site unspecified, unspecified as acute or chronic, without hemorrhage or perforation; F03.90 Unspecified dementia, unspecified severity, without behavioral disturbance, psychotic disturbance, mood disturbance, and anxiety; K21.9 Gastro-esophageal reflux disease without esophagitis; E86.0 Dehydration; E83.52 Hypercalcemia; Z68.37 Body mass index [BMI] 37.0-37.9, adult; Z82.49 Family history of ischemic heart disease and other diseases of the circulatory system; Z86.73 Personal history of transient ischemic attack (TIA), and cerebral infarction without residual deficits
CPT/HCPCS: 36415-UA; 70450-TC; 80053-TC; 80061-TC; 81001-TC; 82550-TC; 82948-90; 83880-TC; 84443-TC; 84484-TC; 85025-TC; 85610-TC; 86301-90; 86304-90; 87086-90; 93005; 94760; 96374; J0696; J1815